=== PATIENT | male | born 1945 | race Caucasian/White ===

== ENCOUNTER 2017-10-08 12:12 | Emergency (ER) | payer MEDICARE, BC ==
--- NOTE | 2017-10-08 12:28 | ERNOTE ---
Head Injury HPI - Narrative Date of Service: 10/08/17 - General Injury to: head, forehead Time Seen by Provider: 10/08/17 12:19 - Immun/Allergies/Home Medications Immunization: IMMUNIZATION HX Immunizations Up to Date Yes History of Influenza Vaccine No Hx Pneumococcal Vaccination Yes Allergies/Adverse Reactions: Allergies Allergy/AdvReac Type Severity Reaction Status Date / Time No Known Allergies Allergy Unverified 08/05/15 14:16 Home Medications: HOME MEDICATIONS Lisinopril [Prinivil] 10 mg PO DAILY 10/08/17 [Last Taken Unknown] Tamsulosin HCl [Flomax] 0.4 mg PO DAILY 10/08/17 [Last Taken Unknown] - History of Present Illness Narrative: patient states that he cut a tree down when the tree bounced up and struck him in the face. patient states he did not have a LOC , change in vision and he was not knocked down by the blow. he states the janelle on his face was from his glasses. Occurred: just prior to arrival Location Occurred: home Severity: mild Head Injury Location: frontal Method of Injury: Reports: direct blow Loss of Consciousness: Reports: no loss of consciousness Associated Symptoms: Reports: denies symptoms Review of Systems - Review of Systems Constitutional: Present: See HPI EYE: Present: no symptoms reported ENT: Present: no symptoms reported Respiratory: Present: no symptoms reported Cardiology: Present: no symptoms reported Gastrointestinal/Abdominal: Present: no symptoms reported Genitourinary: Present: no symptoms reported Musculoskeletal: Present: no symptoms reported Skin: Present: See HPI, lesions Neurological: Present: no symptoms reported Endocrine: Present: no symptoms reported Hematologic/Lymphatic: Present: no symptoms reported Psych: Present: no symptoms reported All Other Systems: All systems neg except as marked - Patient's Past Medical History Patient History - Medical: Other Patient History - Cardiac/Respiratory: Hypertension Patient History - Cancer: No Hx of Cancer Patient History - Surgical Procedures: T & A Patient History - Other: None - Social History Living Situations: spouse Psych History: No pertinent hx Smoking Status: Never smoker Alcohol Use: none Drug Use: none - Immunizations Immunizations Up to Date: Yes Hx Pneumococcal Vaccination: Yes History of Influenza Vaccine: No Physical Exam - Physical Exam Narrative: patient has a 2 cm superficial laceration between his eyebrows. denies any pain at this time. General Appearance: Present: wd/wn, alert, no apparent distress Head Exam: Present: active bleeding, lacerations Eye Exam: Normal inspection: bilateral, PERRL: bilateral, EOMI: bilateral Ears, Nose, Throat: Present: normal ENT inspection, normal pharynx Neck: Present: normal inspection, nontender, supple, full range of motion Respiratory: Present: no respiratory distress, normal breath sounds, no accessory muscle use, chest nontender, lungs clear Cardiovascular/Chest: Present: regular rate, rhythm, no murmur, normal peripheral pulses Peripheral Pulses: N=norm/S=strong/W=weak/B=bound/A=absent: Carotid (R): Normal , Carotid (L): Normal, Radial (R): Normal, Radial (L): Normal Gastrointestinal/Abdominal: Present: normal bowel sounds, nontender, nondistended, soft, no organomegaly Back Exam: Present: normal inspection, normal range of motion, no CVA tenderness , no vertebral tenderness Extremity Exam: Present: normal inspection, non-tender, normal range of motion, no edema Neurological Exam: Present: alert, oriented, normal mood/affect, no motor/ sensory deficits, box lining machine feeder II-XII nml as tested Skin Exam: Present: normal color, warm/dry, other - 2cm laceration Lymphatic Exam: Present: no adenopathy ED Progress - Vital Signs Patient's Vital Signs:: I have reviewed the patient's vital signs. Vital Signs: Vital Signs 10/08/17 12:17 Temperature 36.6 C Pulse Rate 71 Respiratory 15 Rate Blood Pressure 146/90 O2 Sat by Pulse 93 Oximetry - Progress/Reassessment Chief Complaint: Head Injury Progress:: Improved Procedures Medial Elbow Body Front/Back Adult: 1 - 2cm laceration Wound's Depth/Shape: superficial, irregular Wound Explored: clean Wound Intervention: irrigated w/saline Distal NVT: neuro/vasc intact Wound Repaired With: Dermabond Wound Dressing: sterile dressing applied Complications: Pt benny procedure well Plan - Plan Plan: patient refused head CT. and patient educated on head injury and concussion , patient cont to refuse head CT. Departure Clinical Impression: Head injury due to trauma Qualifiers: Encounter type: initial encounter Qualified Code(s): S09.90XA - Unspecified injury of head, initial encounter - Departure Disposition: Home self-care Condition: Stable Instructions: Head Injury, Adult, [id number], Tissue Adhesive Wound Care Additional Instructions: Continu to take home medication. Follow up with PCP if needed. Return to ED for any changes in LOC, nausea, vomiting and dizziness. Referrals: Sebastian Wolf MD [Primary Care Provider] -
[2017-10-08] MEDS ORDERED: DIPHTH,PERTUSS(ACELL),TET VAC 0.5 ML VIAL IM ONE ×2 (13:08→13:09)
[2017-10-08 15:20] VITALS: BP 141/87
== END 2017-10-08 13:20 | disposition home or self-care (01) ==
LOC: ER 12:12
PROC: 0HQ1XZZ Repair Face Skin, External Approach (ICD-10-PCS; principal; 2017-10-08)
DX: S01.81XA Laceration without foreign body of other part of head, initial encounter (principal); I10 Essential (primary) hypertension; W20.8XXA Other cause of strike by thrown, projected or falling object, initial encounter; Y93.H2 Activity, gardening and landscaping; Y92.007 Garden or yard of unspecified non-institutional (private) residence as the place of occurrence of the external cause; Z23 Encounter for immunization